=== PATIENT | male | born 2000 | race Caucasian/White ===

== ENCOUNTER → 2023-08-09 | Emergency (ER) | payer SELFPAY ==
[~2023-08-09] VITALS: Ht 180.3 cm; Wt 87.0 kg
[2023-08-09 15:34] VITALS: BP 107/70; PULSE 70; RESP 18; TEMP 97.6; O2SAT 100
== END ==
LOC: ER 15:32
DX: R53.1 Weakness (principal); Z53.21 Procedure and treatment not carried out due to patient leaving prior to being seen by health care provider